=== PATIENT | female | born 1965 | race African-American/Black ===

== ENCOUNTER 2024-09-12 07:01 | Observation (INO) | payer BC, OTHER ==
[2024-09-12] MEDS: ALBUTEROL SO4 2.5/IPRATROPIUM 0.5 INH SOL 3 ML VIAL.NEB. NEB SCH ×2 (07:28→15:54)
[2024-09-12] MEDS ORDERED: HYDROCHLOROTHIAZIDE 25 MG TABLET (FP) ONE (08:15)
[2024-09-12] MEDS ORDERED: VALSARTAN 80 MG TABLET ONE (08:15)
[2024-09-12] MEDS ORDERED: methylPREDNISolone NA SUCC 125 MG/2 ML VIAL ONE (08:15)
[2024-09-12] MEDS: VALSARTAN 160 MG TABLET PO ONE (08:20)
[2024-09-12] MEDS: HYDROCHLOROTHIAZIDE 25 MG TABLET (FP) PO ONE (08:20)
[2024-09-12] MEDS: methylPREDNISolone NA SUCC 125 MG/2 ML VIAL IVPUSH ONE (08:30)
[2024-09-12 08:46] LABS: VENOUS BASE EXCESS 1.2 mmol/L (-2-2); VENOUS O2 SATURATION 53.7 % (70-80); VENOUS PCO2 50.1 mmHg (38-52); VENOUS PH 7.356 (7.310-7.410)
[2024-09-12 08:47] LABS: ABSOLUTE IMMATURE GRANULOCYTES 0.03 x10^3/uL (0.0-0.031); BASOPHILS # 0.07 x10^3/uL (0.01-0.08); EOSINOPHIL % 5.8 % (0.7-5.8); EOSINOPHILS # 0.41 x10^3/uL (0.04-0.36); HEMOGLOBIN 12.3 g/dL (11.2-15.7); MCHC 30.8 g/dl (32.2-35.5); MEAN CELL VOLUME 87.5 fl (79.4-94.8); MEAN PLT VOLUME 9.5 fl (9.4-12.3); MONOCYTE # 0.52 x10^3/uL (0.24-0.86); MONOCYTE % 7.3 % (4.7-12.5); PLATELET COUNT 348 x10^3/uL (182-369)
[2024-09-12 09:05] LABS: POTASSIUM 4.7 mmol/L (3.5-5.1)
[2024-09-12 09:07] LABS: CALCIUM 8.7 mg/dL (8.5-10.1)
[2024-09-12 09:08] LABS: ALBUMIN 3.7 g/dl (3.4-5.0); BLOOD UREA NITROGEN 9.4 mg/dL (7-18)
[2024-09-12 09:11] LABS: CREATININE 0.9 mg/dL (0.55-1.3)
[2024-09-12 09:12] LABS: BILIRUBIN,TOTAL 0.3 mg/dL (0.2-1); TOT PROT 7.2 g/dl (6.4-8.2)
[2024-09-12 09:15] LABS: N-TERMINAL BNP 33.9 pg/ml (5-125)
[2024-09-12] MEDS ORDERED: ALBUTEROL SO4 0.5 % INH SOLN 2.5 MG/0.5 ML VIAL.NEB. NEB ONE (09:33)
[2024-09-12] MEDS ORDERED: MAGNESIUM SULFATE IN WATER 2 GM/50 ML IVPB IVPB ONE (09:33)
[2024-09-12] MEDS ORDERED: ALBUTEROL SO4 0.083% IH SOL 2.5 MG/3 ML VIAL.NEB. NEB ONE (09:36)
[2024-09-12] MEDS: MAGNESIUM SULFATE IN WATER 2 GM/50 ML IVPB IVPB ONE (09:40)
[2024-09-12] MEDS: ALBUTEROL SO4 0.083% IH SOL 2.5 MG/3 ML VIAL.NEB. NEB ONE (09:40)
[2024-09-12] MEDS ORDERED: KETOROLAC TROMETHAMINE 15 MG/ML VIAL ONE (10:30)
[2024-09-12] MEDS: KETOROLAC TROMETHAMINE 15 MG/ML VIAL IVPUSH ONE (10:34)
[2024-09-12] MEDS ORDERED: ALBUTEROL SO4 0.083% IH SOL 2.5 MG/3 ML VIAL.NEB. NEB PRN (10:50)
[2024-09-12] MEDS ORDERED: amLODIPine BESYLATE 10 MG TABLET (FP) ONE (12:04)
[2024-09-12] MEDS: amLODIPine BESYLATE 10 MG TABLET (FP) PO ONE (12:08)
[2024-09-12] MEDS: ACETAMINOPHEN 325 MG TABLET (FP) PO PRN (16:21)
[2024-09-12 16:47] VITALS: BMI 51.7
[2024-09-12] MEDS ORDERED: methylPREDNISolone NA SUCC 40 MG/1 ML VIAL IVPUSH SCH (18:00)
[2024-09-12] MEDS: methylPREDNISolone NA SUCC 40 MG/1 ML VIAL IVPUSH ONE (21:18)
[2024-09-12] MEDS: MONTELUKAST NA 10 MG TABLET PO SCH (21:18)
[2024-09-12] MEDS: BUDESONIDE/FORMETEROL FUMARATE 160/4.5 mcg INHALER IH SCH (21:19)
[2024-09-12] MEDS: KETOROLAC TROMETHAMINE 15 MG/ML VIAL IVPUSH PRN (23:38)
[2024-09-13 09:09] LABS: ABSOLUTE IMMATURE GRANULOCYTES 0.13 x10^3/uL (0.0-0.031); BASOPHILS # 0.02 x10^3/uL (0.01-0.08); HEMATOCRIT 38.8 % (34.1-44.9); HEMOGLOBIN 12.2 g/dL (11.2-15.7); MCHC 31.4 g/dl (32.2-35.5); MEAN CELL VOLUME 86.2 fl (79.4-94.8); MEAN PLT VOLUME 9.8 fl (9.4-12.3); MONOCYTE # 0.72 x10^3/uL (0.24-0.86); MONOCYTE % 5.1 % (4.7-12.5); PLATELET COUNT 409 x10^3/uL (182-369); RDW 15.1 % (12.3-16.6)
[2024-09-13 09:43] LABS: ALBUMIN 3.8 g/dl (3.4-5.0); CALCIUM 9.5 mg/dL (8.5-10.1); MAGNESIUM 2.3 mg/dL (1.8-2.4)
[2024-09-13 09:44] LABS: BLOOD UREA NITROGEN 12.7 mg/dL (7-18)
[2024-09-13 09:46] LABS: TOT PROT 7.5 g/dl (6.4-8.2)
[2024-09-13 09:47] LABS: CREATININE 0.9 mg/dL (0.55-1.3); PHOSPHOROUS 3.1 mg/dL (2.5-4.9)
[2024-09-13 09:48] LABS: BILIRUBIN,TOTAL 0.3 mg/dL (0.2-1)
[2024-09-13] MEDS ORDERED: ENOXAPARIN NA (PORCINE) 40 MG/0.4 ML DISP.SYRIN SQ SCH (10:00)
[2024-09-13] MEDS: methylPREDNISolone NA SUCC 40 MG/1 ML VIAL IVPUSH SCH ×2 (10:10→18:53)
[2024-09-13] MEDS: VALSARTAN 160 MG TABLET PO SCH (10:10)
[2024-09-13] MEDS: HYDROCHLOROTHIAZIDE 25 MG TABLET (FP) PO SCH (10:10)
[2024-09-13] MEDS: KETOROLAC TROMETHAMINE 15 MG/ML VIAL IVPUSH PRN (10:24)
[2024-09-13] MEDS: DEXTROSE 5%-NORMAL SALINE 1,000 ML IV SCH (12:38)
[2024-09-14 09:28] LABS: ABSOLUTE IMMATURE GRANULOCYTES 0.07 x10^3/uL (0.0-0.031); BASOPHILS # 0.01 x10^3/uL (0.01-0.08); EOSINOPHIL % 0.1 % (0.7-5.8); EOSINOPHILS # 0.01 x10^3/uL (0.04-0.36); HEMATOCRIT 39.5 % (34.1-44.9); HEMOGLOBIN 12.2 g/dL (11.2-15.7); MCHC 30.9 g/dl (32.2-35.5); MEAN CELL VOLUME 87.6 fl (79.4-94.8); MEAN PLT VOLUME 9.7 fl (9.4-12.3); MONOCYTE # 0.38 x10^3/uL (0.24-0.86); MONOCYTE % 2.9 % (4.7-12.5); PLATELET COUNT 426 x10^3/uL (182-369); RDW 15.6 % (12.3-16.6)
[2024-09-14 09:48] LABS: POTASSIUM 4.2 mmol/L (3.5-5.1)
[2024-09-14] MEDS: ENOXAPARIN NA (PORCINE) 40 MG/0.4 ML DISP.SYRIN SQ SCH (09:50)
[2024-09-14 09:58] LABS: CALCIUM 9.3 mg/dL (8.5-10.1)
[2024-09-14 09:59] LABS: MAGNESIUM 2.4 mg/dL (1.8-2.4)
[2024-09-14 10:01] LABS: CREATININE 0.9 mg/dL (0.55-1.3); PHOSPHOROUS 3.4 mg/dL (2.5-4.9)
[2024-09-15 10:02] LABS: ABSOLUTE IMMATURE GRANULOCYTES 0.13 x10^3/uL (0.0-0.031); BASOPHILS # 0.01 x10^3/uL (0.01-0.08); HEMATOCRIT 40.6 % (34.1-44.9); HEMOGLOBIN 12.5 g/dL (11.2-15.7); MCHC 30.8 g/dl (32.2-35.5); MEAN CELL VOLUME 88.1 fl (79.4-94.8); MEAN PLT VOLUME 9.4 fl (9.4-12.3); MONOCYTE # 0.67 x10^3/uL (0.24-0.86); MONOCYTE % 4.5 % (4.7-12.5); PLATELET COUNT 424 x10^3/uL (182-369); RDW 15.3 % (12.3-16.6)
[2024-09-15] MEDS: ENOXAPARIN NA (PORCINE) 40 MG/0.4 ML DISP.SYRIN SQ SCH (10:02)
[2024-09-15 10:08] LABS: INR 1.09 (0.83-1.09); PROTHROMBIN TIME (PATIENT) 11.9 SEC (9.7-13.0)
[2024-09-15 10:23] LABS: POTASSIUM 4.7 mmol/L (3.5-5.1)
[2024-09-15 10:49] LABS: ALBUMIN 3.7 g/dl (3.4-5.0)
[2024-09-15 10:50] LABS: BILIRUBIN,TOTAL 0.3 mg/dL (0.2-1); TOT PROT 7.4 g/dl (6.4-8.2)
[2024-09-15 10:53] LABS: CALCIUM 10.1 mg/dL (8.5-10.1)
[2024-09-15] MEDS: methylPREDNISolone NA SUCC 40 MG/1 ML VIAL IVPUSH SCH (17:47)
[2024-09-16 09:25] LABS: ABSOLUTE IMMATURE GRANULOCYTES 0.13 x10^3/uL (0.0-0.031); BASOPHILS # 0.02 x10^3/uL (0.01-0.08); EOSINOPHIL % 0.1 % (0.7-5.8); EOSINOPHILS # 0.01 x10^3/uL (0.04-0.36); HEMOGLOBIN 13.1 g/dL (11.2-15.7); MCHC 31.2 g/dl (32.2-35.5); MEAN CELL VOLUME 87.3 fl (79.4-94.8); MEAN PLT VOLUME 9.6 fl (9.4-12.3); MONOCYTE # 0.78 x10^3/uL (0.24-0.86); MONOCYTE % 5.3 % (4.7-12.5); PLATELET COUNT 429 x10^3/uL (182-369); RDW 15.1 % (12.3-16.6)
[2024-09-16] MEDS ORDERED: methylPREDNISolone NA SUCC 40 MG/1 ML VIAL IVPUSH SCH (10:00)
[2024-09-17 08:38] LABS: ABSOLUTE IMMATURE GRANULOCYTES 0.23 x10^3/uL (0.0-0.031); BASOPHILS # 0.02 x10^3/uL (0.01-0.08); EOSINOPHIL % 0.1 % (0.7-5.8); EOSINOPHILS # 0.01 x10^3/uL (0.04-0.36); HEMATOCRIT 42.7 % (34.1-44.9); HEMOGLOBIN 13.4 g/dL (11.2-15.7); MCHC 31.4 g/dl (32.2-35.5); MEAN CELL VOLUME 86.4 fl (79.4-94.8); MEAN PLT VOLUME 9.5 fl (9.4-12.3); MONOCYTE # 0.61 x10^3/uL (0.24-0.86); MONOCYTE % 3.7 % (4.7-12.5); PLATELET COUNT 454 x10^3/uL (182-369); RDW 15.1 % (12.3-16.6)
[2024-09-17 09:02] LABS: POTASSIUM 4.3 mmol/L (3.5-5.1)
[2024-09-17 09:03] LABS: CALCIUM 9.3 mg/dL (8.5-10.1)
[2024-09-17 09:04] LABS: MAGNESIUM 2.4 mg/dL (1.8-2.4)
[2024-09-18] MEDS ORDERED: LIDOCAINE 1%/EPI 1:100000 (20 ML MULTI DOSE VIAL) ONE (07:45)
[2024-09-18] MEDS ORDERED: BUPIVACAINE HCL/PF 0.25% (2.5MG/ML) 10 ML VIAL ONE (07:45)
[2024-09-18] MEDS ORDERED: MIDAZOLAM HCL 2 MG/2 ML SINGLE DOSE VIAL ONE (08:17)
[2024-09-18] MEDS ORDERED: BUPIVACAINE HCL/PF 0.5% (5MG/ML) 10 ML VIAL ONE (08:38)
[2024-09-18] MEDS ORDERED: ALBUTEROL SO4 0.083% IH SOL 2.5 MG/3 ML VIAL.NEB. NEB ONE (08:47)
[2024-09-18] MEDS ORDERED: ceFAZolin SODIUM 1 GM VIAL ONE (08:54)
[2024-09-18] MEDS: ceFAZolin SODIUM 1 GM VIAL IVPB ONE (09:00)
[2024-09-18] MEDS ORDERED: ONDANSETRON 4 MG/2 ML VIAL ONE (09:03)
[2024-09-18] MEDS ORDERED: DEXAMETHASONE SOD PHOSPHATE 4 MG/1 ML VIAL ONE (09:03)
[2024-09-18] MEDS: BUPIVACAINE HCL/PF 0.25% (2.5MG/ML) 10 ML VIAL IJ ONE ×3 (09:13)
[2024-09-18] MEDS: LIDOCAINE 1%/EPI 1:100000 (50 ML MULTI DOSE VIAL) INF ONE ×3 (09:13)
[2024-09-18] MEDS: ACETAMINOPHEN 1000 MG/100 ML BAG IVPB ONE (11:02)
[2024-09-18] MEDS ORDERED: ONDANSETRON 4 MG/2 ML VIAL IVPUSH PRN (11:02)
[2024-09-18] MEDS: oxyCODONE HCL 5 MG TABLET PO PRN ×3 (14:12→20:07)
[2024-09-18] MEDS ORDERED: ACETAMINOPHEN 325 MG TABLET (FP) PO SCH (17:00)
[2024-09-18] MEDS ORDERED: methylPREDNISolone NA SUCC 40 MG/1 ML VIAL IVPUSH SCH (18:00)
[2024-09-18] MEDS: CEFAZOLIN 2 GM/D5W 2 GM/50 ML ML IVPB SCH (19:59)
[2024-09-18] MEDS: MONTELUKAST NA 10 MG TABLET PO SCH (21:19)
[2024-09-18] MEDS: BUDESONIDE/FORMETEROL FUMARATE 160/4.5 mcg INHALER IH SCH (22:12)
[2024-09-18] MEDS: oxyCODONE HCL 5 MG TABLET PO ONE (22:12)
[2024-09-19 01:45] VITALS: RESP 18
[2024-09-19 09:02] LABS: ABSOLUTE IMMATURE GRANULOCYTES 0.18 x10^3/uL (0.0-0.031); BASOPHILS # 0.03 x10^3/uL (0.01-0.08); EOSINOPHIL % 0.3 % (0.7-5.8); EOSINOPHILS # 0.06 x10^3/uL (0.04-0.36); HEMATOCRIT 42.1 % (34.1-44.9); HEMOGLOBIN 13.2 g/dL (11.2-15.7); MCHC 31.4 g/dl (32.2-35.5); MEAN CELL VOLUME 87.3 fl (79.4-94.8); MEAN PLT VOLUME 9.9 fl (9.4-12.3); MONOCYTE # 1.92 x10^3/uL (0.24-0.86); MONOCYTE % 9.8 % (4.7-12.5); PLATELET COUNT 412 x10^3/uL (182-369); RDW 15.2 % (12.3-16.6)
[2024-09-19] MEDS ORDERED: HYDROCHLOROTHIAZIDE 25 MG TABLET (FP) PO SCH (10:00)
[2024-09-19] MEDS: VALSARTAN 160 MG TABLET PO SCH (10:10)
[2024-09-19] MEDS: ACETAMINOPHEN 500 MG TABLET (FP) PO SCH (10:10)
[2024-09-19] MEDS: methylPREDNISolone NA SUCC 40 MG/1 ML VIAL IVPUSH SCH (10:39)
[2024-09-19] MEDS ORDERED: ALBUTEROL SO4 HFA INHALER IH PRN (10:51)
[2024-09-19] MEDS: ENOXAPARIN NA (PORCINE) 40 MG/0.4 ML DISP.SYRIN SQ SCH (10:52)
[2024-09-19] MEDS ORDERED: oxyCODONE HCL 5 MG TABLET PO PRN ×2 (10:53→10:56)
[2024-09-19 11:28] LABS: ALBUMIN 3.3 g/dl (3.4-5.0); BILIRUBIN,TOTAL 0.7 mg/dL (0.2-1); BLOOD UREA NITROGEN 36.6 mg/dL (7-18); CALCIUM 9.5 mg/dL (8.5-10.1); CREATININE 1.3 mg/dL (0.55-1.3); POTASSIUM 5.1 mmol/L (3.5-5.1); TOT PROT 6.8 g/dl (6.4-8.2)
[2024-09-19] MEDS: PANTOPRAZOLE SOD 40 MG SUSPENSION PACKET PO SCH (11:59)
[2024-09-19] MEDS: NAPROXEN 250 MG TABLET PO PRN (11:59)
[2024-09-19] MEDS: LACTATED RINGERS SOLUTION 1,000 ML IV SCH (14:03)
[2024-09-19] MEDS: oxyCODONE HCL 5 MG TABLET PO PRN (15:21)
[2024-09-19] MEDS: CELECOXIB 200 MG CAPSULE PO SCH (21:23)
[2024-09-20 08:57] LABS: HEMATOCRIT 41.4 % (34.1-44.9); HEMOGLOBIN 12.6 g/dL (11.2-15.7); MCHC 30.4 g/dl (32.2-35.5); MEAN CELL VOLUME 88.1 fl (79.4-94.8); MEAN PLT VOLUME 9.7 fl (9.4-12.3); PLATELET COUNT 405 x10^3/uL (182-369)
[2024-09-20 09:59] LABS: ALBUMIN 3.1 g/dl (3.4-5.0); BILIRUBIN,TOTAL 0.6 mg/dL (0.2-1); CREATININE 1.2 mg/dL (0.55-1.3)
[2024-09-20 10:00] LABS: TOT PROT 6.5 g/dl (6.4-8.2)
[2024-09-20 10:01] LABS: BLOOD UREA NITROGEN 44.9 mg/dL (7-18); CALCIUM 9.4 mg/dL (8.5-10.1)
[2024-09-21 09:14] VITALS: BP 108/59; PULSE 90; TEMP 97.7
[2024-09-21] MEDS: predniSONE 20 MG TABLET (UD) PO SCH (09:15)
== END 2024-09-21 13:18 ==
LOC: JER 07:01 → JERBED 11:14 → J5S 13:48 → J6S 09-18 13:02
PROVIDERS: ADMIT Internal Medicine; ATTEND Internal Medicine
PROC: 3E033NZ Introduction of Analgesics, Hypnotics, Sedatives into Peripheral Vein, Percutaneous Approach (ICD-10-PCS; 2024-09-12)
PROC: 3E0F7GC Introduction of Other Therapeutic Substance into Respiratory Tract, Via Natural or Artificial Opening (ICD-10-PCS; 2024-09-12)
PROC: 3E03329 Introduction of Other Anti-infective into Peripheral Vein, Percutaneous Approach (ICD-10-PCS; 2024-09-12)
PROC: 3E0337Z Introduction of Electrolytic and Water Balance Substance into Peripheral Vein, Percutaneous Approach (ICD-10-PCS; 2024-09-12)
PROC: 0QS404Z Reposition Right Acetabulum with Internal Fixation Device, Open Approach (ICD-10-PCS; principal; 2024-09-18 08:00)
DX: S82.141A Displaced bicondylar fracture of right tibia, initial encounter for closed fracture (principal); J45.901 Unspecified asthma with (acute) exacerbation; W18.39XA Other fall on same level, initial encounter; Y93.89 Activity, other specified; I10 Essential (primary) hypertension; Y92.238 Other place in hospital as the place of occurrence of the external cause; M25.561 Pain in right knee; M25.461 Effusion, right knee; F17.200 Nicotine dependence, unspecified, uncomplicated
CPT/HCPCS: 0241U-QW; 36415; 71046-TC-FY; 71275-TC; 72170-TC-FY; 73521-TC-FY; 73552-TC-RT-FY; 73562-TC-RT-FY; 73590-TC-RT-FY; 73610-TC-RT-FY; 73630-TC-RT-FY; 73700-TC-RT; 76000-TC-FY; 80048; 80053; 80061; 82803; 82962; 83036; 83735; 83880; 84100; 84484; 85025; 85027; 85610; 86850; 86900; 86901; 93005; 93010; 93306-TC; 94010; 94150; 94640; 94760; 97116-GP; 97161-GP; 99285-25; C1713; G0378; Q9967